=== PATIENT | male | born 1985 | race Two or more races ===

== ENCOUNTER 2016-12-23 08:16 | Emergency (ER) | payer MEDICAID ==
[~2016-12-23] VITALS: Ht 170.2 cm; Wt 77.1 kg
[~2016-12-23 08:16] MED LIST: ALLO100T PO; COLC1TAB3 PO; NORPTMEDS CO
[2016-12-23 09:48] VITALS: BP 122/68
[2016-12-23] MEDS ORDERED: KETOROLAC TROMETH 60MG/2ML VIAL IM ONE (10:45)
== END 2016-12-23 10:56 | disposition home or self-care (01) ==
LOC: ER 08:17
DX: M10.9 Gout, unspecified (principal); F17.210 Nicotine dependence, cigarettes, uncomplicated
CPT/HCPCS: 96372; 99283; J1885

== ENCOUNTER 2017-05-31 08:09 | Emergency (ER) | payer MEDICAID ==
[~2017-05-31] VITALS: Ht 170.2 cm; Wt 81.6 kg
[2017-05-31 08:31] VITALS: BP 134/94
[2017-05-31] MEDS ORDERED: methylPREDNISolone SOD SUCC 125 MG/2 ML VL IM ONE (08:45)
[2017-05-31] MEDS ORDERED: KETOROLAC TROMETH 60MG/2ML VIAL IM ONE (08:45)
== END 2017-05-31 09:33 | disposition home or self-care (01) ==
LOC: ER 08:09
DX: M10.9 Gout, unspecified (principal)
CPT/HCPCS: 96372; 99284; J1885; J2930

== ENCOUNTER 2017-09-18 07:15 | Emergency (ER) | payer MEDICAID ==
[~2017-09-18] VITALS: Ht 170.2 cm; Wt 81.6 kg
[2017-09-18 07:35] VITALS: BP 150/93
[2017-09-18] MEDS ORDERED: KETOROLAC TROMETH 60MG/2ML VIAL IM ONE (09:30)
== END 2017-09-18 09:53 | disposition home or self-care (01) ==
LOC: ER 07:15
DX: S83.91XA Sprain of unspecified site of right knee, initial encounter (principal); M25.461 Effusion, right knee; M17.11 Unilateral primary osteoarthritis, right knee; M10.9 Gout, unspecified; F17.210 Nicotine dependence, cigarettes, uncomplicated; X58.XXXA Exposure to other specified factors, initial encounter; Y93.6A Activity, physical games generally associated with school recess, summer camp and children; Y92.89 Other specified places as the place of occurrence of the external cause; Y99.8 Other external cause status
CPT/HCPCS: 73562; 96372; 99284; J1885

== ENCOUNTER 2021-03-25 11:02 | Emergency (ER) | payer MEDICAID ==
[~2021-03-25] VITALS: Ht 170.2 cm; Wt 81.6 kg
[2021-03-25 11:53] VITALS: BP 139/92
[2021-03-25] MEDS ORDERED: TETRACAINE HCL 0.5% OPTH(EYE) SOLN 4ML LEFTEYE ONE (12:00)
[2021-03-25] MEDS ORDERED: FLUORESCEIN SOD OPTH TEST STRIP LEFTEYE ONE (12:00)
== END 2021-03-25 12:48 | disposition home or self-care (01) ==
LOC: ER 11:02
DX: T15.12XA Foreign body in conjunctival sac, left eye, initial encounter (principal); F17.210 Nicotine dependence, cigarettes, uncomplicated; Z79.899 Other long term (current) drug therapy; W22.8XXA Striking against or struck by other objects, initial encounter; Y93.89 Activity, other specified; Y92.89 Other specified places as the place of occurrence of the external cause; Y99.8 Other external cause status
CPT/HCPCS: 65205